=== PATIENT | female | born 1995 | race Caucasian/White ===

== ENCOUNTER → 2016-12-04 | Outpatient (CLI) | payer BC, SELFPAY ==
--- NOTE | 2016-12-04 15:40 | US ---
EXAM DESCRIPTION: Abdomen,Complete CLINICAL HISTORY: RUQ PAIN COMPARISON: None. TECHNIQUE: Real-time sonographic images of the abdomen are obtained. FINDINGS: Pancreas is unremarkable. The liver is diffusely homogeneous and normal in echogenicity. No focal hepatic mass is seen. The gallbladder is normally distended and free of abnormal internal echogenicities. No gallbladder wall thickening or pericholecystic fluid is seen. The common bile duct measures 3.7 mm in greatest diameter. The right kidney measures 10.5 x 4.6 x 5.0 cm. The left kidney measures 10.4 x 4.8 x 5.4 cm. Both kidneys show normal renal cortical echogenicity. No hydronephrosis is seen. The spleen measures 10.7 cm. Visualized IVC and abdominal aorta are within normal limits. IMPRESSION: Unremarkable abdominal ultrasound. Electronically signed by: Perez Bueno MD 12/04/2016 3:39 PM FIELD ORGANIZER
== END | disposition home or self-care (01) ==
LOC: US 12:34
PROVIDERS: ATTEND Family Medicine
DX: R10.11 Right upper quadrant pain (principal)

== ENCOUNTER → 2018-07-11 | Outpatient (CLI) | payer BC | LOC: GMATM 14:16 | PROVIDERS: ATTEND Nurse Practitioner Family | DX: L68.0 Hirsutism (principal); R63.5 Abnormal weight gain ==

== ENCOUNTER → 2018-07-20 | Outpatient (CLI) | payer BC ==
--- NOTE | 2018-07-20 13:45 | US ---
EXAM DESCRIPTION: Breast,Left: Ultrasound CLINICAL HISTORY: 23 yearsFemaleLT BREAST LUMP lower outer quadrant. Patient states the nurse practitioner felt the lump she did not feel it. No pain COMPARISON: No comparison study. TECHNIQUE: Transcutaneous scanning of the left breast utilizing saenz-scale and Doppler modes. Scanning performed by the rotary furnace tender, and Dr. Matthews observation mass was not palpable. FINDINGS: Scanning from the 3:00 to the 6:00 position of the left breast. Heterogeneous fatty and fibroglandular echotexture. No distinct solid mass or cyst. No parenchymal edema or large calcification. No overlying skin changes. No abnormal vascularity. IMPRESSION: Benign exam. BIRAD CATEGORY: 2 BENIGN FINDINGS. RECOMMENDATIONS: FOLLOW UP: Routine digital bilateral mammographic screening, beginning at age 40. Any breast imaging performed before age 40 should continue to be based upon clinical findings. Please see below.* The FINDINGS and the FOLLOW-UP plan were reviewed in person with the patient after the examination. Written communication explaining the IMPRESSION and FOLLOW-UP will be mailed to the patient and referring care provider. *According to the [employer], yearly mammograms are recommended starting at age 40 and continuing as long as a woman is in good health. Any breast change noted on a breast self-exam should be reported promptly to the patient's healthcare provider. Breast MRI is recommended for women with an approximately 20-25% or greater lifetime risk of breast cancer, including women with a strong family history of breast or ovarian cancer and women who have been treated for Hodgkin's disease. Electronically signed by: Hunter Matthews MD 07/20/2018 1:44 PM CDT
== END ==
LOC: MAMMO 12:24
PROVIDERS: ATTEND Nurse Practitioner Family
DX: N63.23 Unspecified lump in the left breast, lower outer quadrant (principal)

== ENCOUNTER → 2018-07-29 | Outpatient (CLI) | payer BC, OTHER ==
--- NOTE | 2018-07-29 14:57 | CT ---
EXAM DESCRIPTION: Abdomen/Pelvis w/Contrast: Computed Tomography. CLINICAL HISTORY: ENDOCRINE DISORDER COMPARISON: CT scan of the chest 12/09/2015. TECHNIQUE: Spiral-axial scans at 5 x 5 mm intervals through the abdomen and pelvis, after nonionic IV contrast , no oral contrast. Coronal and sagittal 2.0 mm reconstructions. No delayed scans. No adverse reactions. Total Exam DLP: 50 mGy-cm. This exam was performed according to our departmental dose-optimization program which includes automated exposure control, adjustment of the mA and/or kV according to patient size and/or use of iterative reconstruction technique; to reduce radiation dose to as low as reasonably achievable (ALARA). FINDINGS: Lung bases and pleura: Negative. Liver, Stomach, Spleen, Adrenal Glands: Unremarkable. Pancreas, Gallbladder, Ducts: Minimal radiodense material in the neck of the gallbladder. Duct and pancreas are negative. Kidneys and Ureters: Unremarkable. Mesentery: Negative. Aorta: Unremarkable. Small Bowel: Negative. Terminal Ileum/Cecum: Unremarkable. Colon: Minimal fecal material in the proximal colon but nondistended. Pelvic Organs: Uterus is retroverted or retroflexed. Right ovary is prominent, measuring 3.1 x 2.7 x 1.9 cm. More superior and anterior within the left ovary abutting the appendix. Appendix is negative with normal density of surrounding fat. No fluid in the cul-de-sac.. Spine and Bony Pelvis: Lower thoracic levoscoliosis. Abdominal Wall/Back Soft Tissues: Minimal diastases at the umbilicus but not containing bowel. IMPRESSION: 1. No inflammatory changes free fluid or free air. Right ovary is prominent but other organs are normal size. Right ovary is also more superior and anterior than the left ovary, and is abutting the appendix. Normal CT appearance of the appendix. Uterus is retroverted or retroflexed. No fluid in the cul-de-sac. Electronically signed by: Hunter Matthews MD 07/29/2018 2:55 PM CDT
== END ==
LOC: CT 11:06
PROVIDERS: ATTEND Nurse Practitioner Family
DX: E34.9 Endocrine disorder, unspecified (principal)